=== PATIENT | male | born 1945 | race Caucasian/White ===

== ENCOUNTER 2018-04-26 14:58 | Observation (INO) ==
--- NOTE | 2018-04-26 15:32 | Emergency Department Note ---
ED Disposition Clinical Impression: Partial small bowel obstruction, Hypokalemia Cholelithiasis Qualifiers: Cholelithiasis location: other site Biliary obstruction: without biliary obstruction Qualified Code(s): K80.80 - Other cholelithiasis without obstruction Disposition: Admitted As Inpatient Condition on Discharge: Fair Time of Disposition: 16:32 - Critical Care Critical Care Time: No Attestation: On 04/26/18, the high probability of a clinically significant, sudden or life threatening deterioration of the following system(s) required my full and direct attention, intervention and personal management. The time I documented below is in addition to time spent performing reported procedures but includes the following listed in this critical care notation. Medical Decision Making - Medical Records Medical records reviewed: Yes: I reviewed the patient's medical records. - Flip Inquiry Pt receiving controlled substance: No Vital Signs: 04/26/18 15:00 04/26/18 16:51 04/26/18 17:02 Temperature 98.0 F 99.1 F 98.0 F Temperature Source Oral Oral Oral Pulse Rate 96 H Pulse Rate [Right Brachial] 110 H 84 Respiratory Rate 20 18 20 Blood Pressure 127/52 Blood Pressure [Right Arm] 156/116 146/94 Blood Pressure Mean [Right Arm] 129 111 Blood Pressure Source Automatic Cuff Blood Pressure Source [Right Arm] Automatic Cuff Automatic Cuff Blood Pressure Position Sitting Blood Pressure Position [Right Arm] Sitting Supine 02 Sat by Pulse Oximetry 95 96 Oxygen Delivery Method Room Air Room Air Room Air - Lab Data Lab results reviewed: Yes: I reviewed the patient's lab results. Lab Results 04/26/18 15:25: WBC 12.3 H, RBC 5.28, Hgb 16.5, Hct 45.5, MCV 86.2, MCH 31.3 H, MCHC 36.3 H, RDW 12.2, Plt Count 285, MPV 8.0, Neut % (Auto) 70.6, Lymph % (Auto ) 19.1, [place] % (Auto) 9.6 H, Eos % (Auto) 0.5, Baso % (Auto) 0.3, Neut # (Auto) 8.7 H, Lymph # (Auto) 2.3, [place] # (Auto) 1.2 H, Eos # (Auto) 0.1, Baso # (Auto) 0.0 04/26/18 15:25: Sodium 138, Potassium 2.8 L*, Chloride 100, Carbon Dioxide 28, Anion Gap 12.8, BUN 17, Creatinine 1.04, Estimated Creat Clear 80, Estimated GFR 70, Est GFR ( Amer) 85, Glucose 114 H, Calcium 9.2, Total Bilirubin 1.2 H, AST 22, ALT 26, Alkaline Phosphatase 81, Total Protein 7.9, Albumin 3.7, Globulin 4.2 H, Albumin/Globulin Ratio 0.9 L, Amylase 75, Lipase 493 H Result diagrams: 04/26/18 15:25 04/26/18 15:25 Orders (Tests/Meds): ED MEDICATIONS Generic Name Dose Route Start Last Admin Trade Name Freq PRN Reason Stop Dose Admin Potassium Chloride/Water 100 mls @ 100 mls/hr 04/26/18 16:51 04/26/18 17:54 Potassium Chloride 10meq/100ml Ivpb IV 04/26/18 19:50 100 mls/hr Q1H ILEANA Administration Potassium Chloride/Dextrose/Sod Cl 1,000 mls @ 150 mls/hr 04/26/18 17:15 03/10 17:55 Kcl 40meq In Dex 5%/0.45% Nacl IV 05/26/18 17:14 150 mls/hr .Q6H40M ILEANA Administration Ondansetron HCl 4 mg 04/26/18 17:09 Zofran 4mg/2ml Vial IV 05/26/18 17:08 Q6HP PRN Nausea Sodium Chloride 10 ml 04/26/18 17:43 Saline Flush 10ml Syringe IV 05/26/18 17:42 NEEDED PRN Maintain IV Site Discontinued Medications Generic Name Dose Route Start Last Admin Trade Name Freq PRN Reason Stop Dose Admin Sodium Chloride 1,000 mls @ 999 mls/hr 04/26/18 15:30 04/26/18 15:40 Sod Chlor 0.9% 1000ml Bag IV 04/26/18 16:30 999 mls/hr .Q1H1M ILEANA Administration Sodium Chloride 1,000 mls @ 125 mls/hr 04/26/18 16:45 Sod Chlor 0.9% 1000ml Bag IV 05/26/18 16:44 .Q8H ILEANA Morphine Sulfate 4 mg 04/26/18 16:34 Morphine 2mg/Ml Syringe IV 05/26/18 16:33 Q4HP PRN Pain Ondansetron HCl 4 mg 04/26/18 15:29 04/26/18 15:39 Zofran 4mg/2ml Vial IV 04/26/18 15:30 4 mg ONCE ONE Administration Ondansetron HCl 4 mg 04/26/18 16:34 Zofran 4mg/2ml Vial IV 05/26/18 16:44 Q4H PRN Nausea Pantoprazole Sodium 40 mg 04/26/18 16:45 Protonix 40mg Tablet PO 05/26/18 16:44 DAILY ILEANA ORDERS Category Date Time Status Consult to General Surgery [CONS] Routine Cons 04/26/18 16:34 Ordered - CT Data CT Scan: Abdomen, Pelvis Time Received: 16:[address] Reviewed: Yes: I have reviewed the patient's CT results, I discussed the CT results w/the radiologist Findings Narrative: [address] [place] [address] [place] Scan Report Signed Patient: Edmund Cunningham MR#: [id number] : 1945 Acct:[id number] Age/Sex: 72 / M ADM Date: 04/26/18 Loc: ER Attending Dr: Ordering Physician: David De Leon MD Date of Service: 04/26/18 Procedure(s): CT abdomen pelvis wo con Accession Number(s): [id number] cc: Chan Bishop MD; Provider, Referral MD~ CT abdomen pelvis wo con CLINICAL INDICATION: Abdominal cramping with diarrhea and black stool ITS.REASON: abd cramping, diarrhea, black stools ORDERING PHYSICIAN: David De Leon MD PATIENT AGE: 72 years COMPARISON: None TECHNIQUE: Axial images obtained with sagittal and coronal reformats. All CT scans at the facility use one or more dose reduction, viz: automated exposure control; ma/kV adjustment per patient size (including targeted exams where dose is matched to indication; i.e. head); or iterative reconstruction technique. PROCEDURE: Oral Contrast: None IV Contrast: None . FINDINGS: The lung bases are clear. Coronary artery calcifications are present. Mosaic decreased density is present involving the liver consistent with fatty liver infiltration. Small hyperdense areas noted in the left hepatic lobe anterior to the gallbladder measuring 8 mm and may be due to focal sparing of fatty liver. There are gallstones present. At least one stone is present in the neck of the gallbladder measuring 6 mm. No obvious biliary dilatation. The spleen and adrenal glands are unremarkable. The pancreas has an unremarkable appearance. There are multiple bilateral renal cysts measuring up to 11 cm in the lower pole on the right. A bilocular cyst measures up to 10 cm on the left laterally. Nonobstructing 3 mm stone is present in the lower pole the left kidney. No ureteral calculi. No hydronephrosis. No evidence of appendicitis. The appendix is small but hyperdense could be related to retained contrast. There is diverticulosis of the colon but no evidence of diverticulitis. There are mildly distended small bowel loops noted in the mid abdominal region containing air-fluid levels. This is nonspecific and could be related to ileus or enteritis. No acute bony anomalies. IMPRESSION: 1. Cholelithiasis with a stone present in the neck of the gallbladder. 2. Bilateral renal cysts with nonobstructing stone in the lower pole of the left kidney. 3. Mildly distended small bowel in the mid abdominal region with air-fluid levels. There are some air-fluid levels also noted large bowel. The findings may be due to ileus or enterocolitis. Dictated By: Chan Bishop MD Signed By: <Electronically signed by Chan Bishop MD in OV> 04/26/18 1558 DD/ 1545 - Physician Consults Physician Consulted: Dr Zelaya Time: 16:45 Reason -: Admission, Pt condition Comment/Response: Advised of patient's presentation and findings, agreeable with hospitalization, as well as consult to general surgeon. - Reevaluation(s) Time: 16:30 Reevaluation #1: Upon reevaluation patient remains in distress, without any significant improvement. Advised patient of results obtained, as well as need to place him in the observation for additional treatment and studies. Abdominal Pain HPI - General Chief Complaint: Abdominal Pain Stated Complaint: abd pain, vomiting, black stool Time Seen by Provider: 04/26/18 15:40 Mode of Arrival: Ambulatory Source of Information: Patient Limitations: No Limitations Description of Symptoms (Recalled from ER Triage Doc. by RN): Pt reports abd cramping x3 weeks, reports stomach feels bloated, reports diarrhea x1 week with black stools. Pt states he has not eaten in 1 week, reports he has lost 16 pounds. - History of Present Illness HPI narrative: Patient symptoms started approximately 3 weeks ago, gradually escalating, culminating with severe abdominal pain, localized in the epigastric area, since earlier this morning. Within the past 3 weeks the patient's pain causes him to decrease his oral intake, lose 16 pounds. She was unable to eat anything since morning, due to his severe pain, also associated with few episodes of nausea vomiting. Patient denies any similar episodes in the past. MD complaint: abdominal pain Onset (ago): week(s) (3) Consistency: constant Location: suprapubic Severity: moderate Severity scale (1-10): 8 Quality: cramping, stabbing Radiation: none Migration to: no migration Exacerbating factors: nothing - Related Data Home Medications Medication Instructions Recorded Confirmed No Known Home Medications 04/26/18 04/26/18 Allergies Allergy/AdvReac Type Severity Reaction Status Date / Time No Known Allergies Allergy Verified 04/26/18 15:26 [facility] History I have reviewed the patient's past medical history: Yes ROS Obtained: Yes All systems reviewed & no additional complaints, Yes Systems reviewed as appropriate & no additional complaints - Gastrointestinal Gastrointestingal: Reports: system reviewed and no additional complaints, except as docu, as per HPI, abdominal pain, bloating, nausea, vomiting Physical Exam - General General appearance: alert, in distress (moderate) - Head Head exam: atraumatic, normocephalic, normal inspection - Neck Neck exam: Present: normal inspection, full ROM, trachea midline. Absent: meningismus, lymphadenopathy - Chest Chest inspection: Present: normal inspection, symmetric chest wall rise. Absent : tenderness - Respiratory Respiratory exam: Present: normal lung sounds bilaterally. Absent: respiratory distress - Cardiovascular Cardiovascular exam: Present: tachycardia. Absent: JVD - Abdominal Exam Abdominal exam: Present: soft, tenderness (Epigastric), normal bowel sounds. Absent: distention, guarding - Extremities Exam Extremities exam: Present: normal inspection, full ROM, normal capillary refill. Absent: calf tenderness - Neurological Exam Neurological exam: Present: alert, oriented X3, CN II-XII intact, normal gait - Psychiatric Psychiatric exam: Present: depressed, flat affect - Skin Skin exam: Present: warm, dry, intact, normal color
[2018-04-26 15:39] LABS: Hematocrit 45.5 % (42.0-52.0); Hemoglobin 16.5 g/dL (14.1-18.0); Mean Corpuscular HGB Conc 36.3 g/dL (31.8-35.4); Mean Corpuscular Hemoglobin 31.3 pg (27.0-31.2); Mean Corpuscular Volume 86.2 fl (80-94); Red Blood Count 5.28 M/mm3 (4.60-6.20); Red Cell Distribution Width 12.2 % (11.5-17.5); White Blood Count 12.3 K/mm3 (4.8-10.8)
[2018-04-26 15:40] LABS: Basophils % 0.3 % (0.1-2.0); Eosinophils % 0.5 % (0.1-12.0); Lymphocytes # 2.3 K/mm3 (0.7-4.5); Lymphocytes % 19.1 K/mm3 (10-50); Monocytes % 9.6 % (1.7-9.3); Neutrophils # 8.7 K/mm3 (1.8-7.8); Neutrophils % 70.6 % (37.0-80.0); Platelet Count 285 K/mm3 (142-424)
[2018-04-26 15:41] LABS: Eosinophils # 0.1 K/mm3 (0.0-0.4); Monocytes # 1.2 K/mm3 (0.1-1.0)
[2018-04-26 15:47] LABS: Albumin Level 3.7 gm/dL (3.4-5.0); Albumin/Globulin Ratio 0.9 (1.1-1.8); Anion Gap 12.8 mEq/L (5-15); Bilirubin,Total 1.2 mg/dL (0.2-1.0); Calcium 9.2 mg/dL (8.5-10.1); Globulin 4.2 gm/dl (1.3-3.2); Total Protein,Serum 7.9 gm/dL (6.4-8.2)
[2018-04-26 15:48] LABS: Potassium 2.8 mmoL/L (3.5-5.1)
--- NOTE | 2018-04-26 17:01 | History & Physical Report ---
*Admission Date: 04/26/18 *Chief complaint: Abdominal pain *History of present illness: 72-year-old male presented to the emergency department today with approximately 3 weeks of abdominal pain. While symptoms began 3 weeks ago they did not really intensify until April 18. Patient reports on that day, which was a Thursday , he experienced abdominal pain and a sensation as if food was coming up into his throat while he was at [employer]. He left [employer] to come home. From that point on he has had intermittent episodes of severe abdominal pain. 48 hours later on April 20 was the last time he attempted to eat. Whenever he would eat he would get crampy abdominal pain and occasionally been nauseated with emesis. He endorses subjective fevers and chills. He has been on a liquid diet for the last week. When this illness began 3 weeks ago he noticed black stools that have persisted. Patient does not take any medications. He notices recurrent abdominal distention anytime he tries to eat or drink. He reports a 16 pound weight loss. He is to the point where he is having 1-2 bowel movements per day that are described as "squirt" or a "spray". Workup in the emergency department revealed gaseous distention of the stomach along with cholelithiasis at the neck of the gallbladder, and findings suggestive of ileus. Patient has been admitted for gastrointestinal decompression, surgical consultation [facility] History I have reviewed the patient's past medical history: Yes Review of Systems - Review of Systems Review of systems:: pertinent systems reviewed and negative unless documented below - Constitutional Reports anorexia, Reports chills - *Cardiovascular Denies chest pain, Denies chest pain at rest - *Respiratory Denies change in phlegm color, Denies cough, Denies shortness of breath - *Gastrointestinal Reports abdominal pain, Reports bloating, Reports change in bowel habits, Reports change in stools, Reports black, tarry stools, Denies difficulty swallowing, Denies vomiting blood, Denies bright, red blood in stools Meds Home Medications Medication Instructions Recorded Confirmed Type No Known Home Medications 04/26/18 04/26/18 History Allergies Allergy/AdvReac Type Severity Reaction Status Date / Time No Known Allergies Allergy Verified 04/26/18 15:26 Exam Vital signs and Labs for Last 24 Hours: Temp Pulse Resp BP Pulse Ox 98.0 F 110 H 20 156/116 95 04/26/18 15:00 06/04/18 15:00 04/26/18 15:00 04/26/18 15:00 04/26/18 15:00 Laboratory Results - last 24 hr 04/26/18 15:25: WBC 12.3 H, RBC 5.28, Hgb 16.5, Hct 45.5, MCV 86.2, MCH 31.3 H, MCHC 36.3 H, RDW 12.2, Plt Count 285, MPV 8.0, Neut % (Auto) 70.6, Lymph % (Auto ) 19.1, [place] % (Auto) 9.6 H, Eos % (Auto) 0.5, Baso % (Auto) 0.3, Neut # (Auto) 8.7 H, Lymph # (Auto) 2.3, [place] # (Auto) 1.2 H, Eos # (Auto) 0.1, Baso # (Auto) 0.0 04/26/18 15:25: Sodium 138, Potassium 2.8 L*, Chloride 100, Carbon Dioxide 28, Anion Gap 12.8, BUN 17, Creatinine 1.04, Estimated Creat Clear 80, Estimated GFR 70, Est GFR ( Amer) 85, Glucose 114 H, Calcium 9.2, Total Bilirubin 1.2 H, AST 22, ALT 26, Alkaline Phosphatase 81, Total Protein 7.9, Albumin 3.7, Globulin 4.2 H, Albumin/Globulin Ratio 0.9 L, Amylase 75, Lipase 493 H I & O for Last 24 hours: Intake & Output 04/24/18 04/25/18 04/26/18 04/27/18 11:59 11:59 11:59 11:59 Weight 196 lb Narrative: Patient appears well. HEENT exam is unremarkable, mucous membranes are moist. Neck is without carotid bruits or lymphadenopathy. Lungs are clear to auscultation. Heart has a regular rate and rhythm. Abdomen is soft, nontender , distended. I do not hear bowel sounds during exam. Extremities are warm to the touch. Neurologically there is no deficit and the patient actually transitions from lying to sitting quite easily. H&P: Result - Labs Labs: Short CBC 04/26/18 Range/Units 15:25 WBC 12.3 H (4.8-10.8) K/mm3 Hgb 16.5 (14.1-18.0) g/dL Hct 45.5 (42.0-52.0) % Plt Count 285 (142-424) K/mm3 BMP 04/26/18 15:25 Sodium 138 Potassium 2.8 L* Chloride 100 Carbon Dioxide 28 BUN 17 Creatinine 1.04 Glucose 114 H Calcium 9.2 Liver Function 04/26/18 Range/Units 15:25 Total Bilirubin 1.2 H (0.2-1.0) mg/dL AST 22 (15-37) U/L ALT 26 (12-78) U/L Alkaline Phosphatase 81 (46-116) U/L Albumin 3.7 (3.4-5.0) gm/dL Assessment and Plan (1) Partial small bowel obstruction Current visit: Yes Status: Acute Category: Medical Code(s): K56.600 - Partial intestinal obstruction, unspecified as to cause (2) Elevated lipase Current visit: Yes Status: Acute Category: Medical Code(s): R74.8 - Abnormal levels of other serum enzymes (3) Cholelithiasis Current visit: Yes Status: Acute Qualifiers: Cholelithiasis location: other site Biliary obstruction: without biliary obstruction Qualified Code(s): K80.80 - Other cholelithiasis without obstruction Category: Medical Code(s): K80.20 - Calculus of gallbladder without cholecystitis without obstruction (4) Hypokalemia Current visit: Yes Status: Acute Category: Medical Code(s): E87.6 - Hypokalemia - Assessment and plan all Dx Assessment and Plan for all problems:: 1. Admit for IV fluids and potassium replacement 2. Repeat labs in morning including lipase 3. Surgical consultation. Origin of patient's gastrointestinal problems is somewhat a mystery. He has visible cholelithiasis on CT scan. He could have possibly had a gallstone ileus or even gallstone pancreatitis as lipase remains slightly elevated. Tarry stools would suggest upper GI bleed. NG tube will be placed in the emergency department for gastric decompression.
--- NOTE | 2018-04-26 19:21 | Consult Report ---
*Admission Date: 04/26/18 *Chief complaint: Abdominal pain *History of present illness: 72-year-old male presented to the emergency department today with approximately 3 weeks of abdominal pain. While symptoms began 3 weeks ago they did not really intensify until April 18. Patient reports on that day, which was a Thursday , he experienced abdominal pain and a sensation as if food was coming up into his throat while he was at [employer]. He left [employer] to come home. From that point on he has had intermittent episodes of severe abdominal pain. 48 hours later on April 20 was the last time he attempted to eat. Whenever he would eat he would get crampy abdominal pain and occasionally been nauseated with emesis. He endorses subjective fevers and chills. He has been on a liquid diet for the last week. When this illness began 3 weeks ago he noticed black stools that have persisted. Patient does not take any medications. He notices recurrent abdominal distention anytime he tries to eat or drink. He reports a 16 pound weight loss. He is to the point where he is having 1-2 bowel movements per day that are described as "squirt" or a "spray". Workup in the emergency department revealed gaseous distention of the stomach along with cholelithiasis at the neck of the gallbladder, and findings suggestive of ileus. Patient has been admitted for gastrointestinal decompression, surgical consultation He describes the pain as generalized in the mid abdomen resembling a weight. He does describe distention. He has had regurgitation of liquid and has had black liquid bowel movements. He has never had any prior abdominal surgery. Denies any prior similar history. Review of Systems - Constitutional Reports chills, Reports fatigue, Reports lack of energy - Eyes Denies change in vision - ENT Denies abnormal hearing - *Cardiovascular Denies chest pain - *Respiratory Denies shortness of breath - *Gastrointestinal Reports abdominal pain, Reports belching, Reports bloating, Reports change in bowel habits, Reports change in stools - *Musculoskeletal Denies abnormal walking - *Neurologic Denies dizziness [facility] History Medical History: Denies:: Cancer, Diabetes Mellitus Type 1, Diabetes Mellitus Type 2, MRSA Amputation: No Fractures: No - *Social History Educational Level: Attended College Alcohol Intake: never Occupational Status: retired Housing: house Household Members: spouse - Psychiatric History Expresses thoughts of harming self/others: None Suicide Plan Description: No Plan *Family Hx:: Hypertension Meds Home Medications Medication Instructions Recorded Confirmed Type No Known Home Medications 04/26/18 04/26/18 History Allergies Allergy/AdvReac Type Severity Reaction Status Date / Time No Known Allergies Allergy Verified 04/26/18 15:26 Exam Vital signs and Labs for Last 24 Hours: Temp Pulse Resp BP Pulse Ox 98.0 F 96 H 20 127/52 99 04/26/18 17:02 04/26/18 17:02 04/26/18 17:02 04/26/18 17:02 04/26/18 18:30 Laboratory Results - last 24 hr 04/26/18 15:25: WBC 12.3 H, RBC 5.28, Hgb 16.5, Hct 45.5, MCV 86.2, MCH 31.3 H, MCHC 36.3 H, RDW 12.2, Plt Count 285, MPV 8.0, Neut % (Auto) 70.6, Lymph % (Auto ) 19.1, [place] % (Auto) 9.6 H, Eos % (Auto) 0.5, Baso % (Auto) 0.3, Neut # (Auto) 8.7 H, Lymph # (Auto) 2.3, [place] # (Auto) 1.2 H, Eos # (Auto) 0.1, Baso # (Auto) 0.0 04/26/18 15:25: Sodium 138, Potassium 2.8 L*, Chloride 100, Carbon Dioxide 28, Anion Gap 12.8, BUN 17, Creatinine 1.04, Estimated Creat Clear 80, Estimated GFR 70, Est GFR ( Amer) 85, Glucose 114 H, Calcium 9.2, Total Bilirubin 1.2 H, AST 22, ALT 26, Alkaline Phosphatase 81, Total Protein 7.9, Albumin 3.7, Globulin 4.2 H, Albumin/Globulin Ratio 0.9 L, Amylase 75, Lipase 493 H I & O for Last 24 hours: Intake & Output 04/24/18 04/25/18 04/26/18 04/27/18 11:59 11:59 11:59 11:59 Intake Total 100 / 100 Balance 100 / 100 Weight 205 lb 1.995 oz - Constitutional no acute distress - *Routine Cardiovascular Exam Present: RRR - *Routine Abdominal Exam Present: distended. Absent: tenderness Results - Labs 04/26/18 15:25 04/26/18 15:25 Laboratory Results - last 24 hr 04/26/18 15:25: WBC 12.3 H, RBC 5.28, Hgb 16.5, Hct 45.5, MCV 86.2, MCH 31.3 H, MCHC 36.3 H, RDW 12.2, Plt Count 285, MPV 8.0, Neut % (Auto) 70.6, Lymph % (Auto ) 19.1, [place] % (Auto) 9.6 H, Eos % (Auto) 0.5, Baso % (Auto) 0.3, Neut # (Auto) 8.7 H, Lymph # (Auto) 2.3, [place] # (Auto) 1.2 H, Eos # (Auto) 0.1, Baso # (Auto) 0.0 04/26/18 15:25: Sodium 138, Potassium 2.8 L*, Chloride 100, Carbon Dioxide 28, Anion Gap 12.8, BUN 17, Creatinine 1.04, Estimated Creat Clear 80, Estimated GFR 70, Est GFR ( Amer) 85, Glucose 114 H, Calcium 9.2, Total Bilirubin 1.2 H, AST 22, ALT 26, Alkaline Phosphatase 81, Total Protein 7.9, Albumin 3.7, Globulin 4.2 H, Albumin/Globulin Ratio 0.9 L, Amylase 75, Lipase 493 H Assessment and Plan (1) Partial small bowel obstruction Current visit: Yes Status: Acute Category: Medical Code(s): K56.600 - Partial intestinal obstruction, unspecified as to cause (2) Elevated lipase Current visit: Yes Status: Acute Category: Medical Code(s): R74.8 - Abnormal levels of other serum enzymes (3) Cholelithiasis Current visit: Yes Status: Acute Qualifiers: Cholelithiasis location: other site Biliary obstruction: without biliary obstruction Qualified Code(s): K80.80 - Other cholelithiasis without obstruction Category: Medical Code(s): K80.20 - Calculus of gallbladder without cholecystitis without obstruction (4) Hypokalemia Current visit: Yes Status: Acute Category: Medical Code(s): E87.6 - Hypokalemia - Assessment and plan all Dx Assessment and Plan for all problems:: Patient's constellation of symptoms are quite in enigma. He does seem to have some symptoms consistent with partial small bowel obstruction. I did review the films and although he had a CT scan without any contrast whatsoever he appears to only have mild to moderate distention of the bowel with air-fluid levels. He does have quite large bilateral renal cysts. I do agree with gallbladder ultrasound for better assessment of the gallbladder although the symptoms seem quite atypical for primary cholecystitis. It is possible he has had biliary pancreatitis with secondary ileus which is now slowly resolving. If his symptoms persist and the diagnosis remains in question and he is able to tolerate oral intake CT scan with IV and oral contrast would likely be very beneficial.
[2018-04-27 05:54] LABS: Basophils % 0.5 % (0.1-2.0); Eosinophils # 0.1 K/mm3 (0.0-0.4); Eosinophils % 1.7 % (0.1-12.0); Hematocrit 43.1 % (42.0-52.0); Lymphocytes # 1.7 K/mm3 (0.7-4.5); Lymphocytes % 23.6 K/mm3 (10-50); Mean Corpuscular HGB Conc 33.2 g/dL (31.8-35.4); Mean Corpuscular Volume 90.2 fl (80-94); Monocytes # 0.8 K/mm3 (0.1-1.0); Neutrophils # 4.6 K/mm3 (1.8-7.8); Neutrophils % 63.3 % (37.0-80.0); Platelet Count 229 K/mm3 (142-424); Red Blood Count 4.77 M/mm3 (4.60-6.20); Red Cell Distribution Width 12.4 % (11.5-17.5); White Blood Count 7.3 K/mm3 (4.8-10.8)
[2018-04-27 06:02] LABS: Hemoglobin 14.5 g/dL (14.1-18.0)
[2018-04-27 06:09] LABS: Albumin Level 2.8 gm/dL (3.4-5.0); Anion Gap 10.4 mEq/L (5-15); Bilirubin,Direct 0.2 mg/dL (0.0-0.2); Bilirubin,Indirect 0.5 mg/dL (0.0-0.9); Bilirubin,Total 0.7 mg/dL (0.2-1.0); Potassium 3.4 mmoL/L (3.5-5.1); Total Protein,Serum 6.2 gm/dL (6.4-8.2)
[2018-04-27 06:19] LABS: Calcium 8.1 mg/dL (8.5-10.1)
--- NOTE | 2018-04-27 06:53 | Progress Note ---
Internal Medicine - PN: Subj *Date: 04/27/18 *Time: 06:51 Interval history: Patient has no new complaints this morning. He states he feels about the same. Abdomen remains distended and he has had several bowel movements overnight which were loose and a mixture of yellow and black stool. He is also had some acid reflux overnight but denies outright vomiting. Exam Vital signs and Labs for Last 24 Hours: Temp Pulse Resp BP Pulse Ox 98.2 F 63 22 134/88 95 04/27/18 04:00 04/27/18 04:00 04/27/18 04:00 04/27/18 04:00 04/27/18 04:00 Laboratory Results - last 24 hr 04/26/18 15:25: WBC 12.3 H, RBC 5.28, Hgb 16.5, Hct 45.5, MCV 86.2, MCH 31.3 H, MCHC 36.3 H, RDW 12.2, Plt Count 285, MPV 8.0, Neut % (Auto) 70.6, Lymph % (Auto ) 19.1, [place] % (Auto) 9.6 H, Eos % (Auto) 0.5, Baso % (Auto) 0.3, Neut # (Auto) 8.7 H, Lymph # (Auto) 2.3, [place] # (Auto) 1.2 H, Eos # (Auto) 0.1, Baso # (Auto) 0.0 04/26/18 15:25: Sodium 138, Potassium 2.8 L*, Chloride 100, Carbon Dioxide 28, Anion Gap 12.8, BUN 17, Creatinine 1.04, Estimated Creat Clear 80, Estimated GFR 70, Est GFR ( Amer) 85, Glucose 114 H, Calcium 9.2, Total Bilirubin 1.2 H, AST 22, ALT 26, Alkaline Phosphatase 81, Total Protein 7.9, Albumin 3.7, Globulin 4.2 H, Albumin/Globulin Ratio 0.9 L, Amylase 75, Lipase 493 H 04/26/18 21:00: Stool Occult Blood Negative 04/27/18 05:30: WBC 7.3 D, RBC 4.77, Hgb 14.5 D, Hct 43.1, MCV 90.2, MCH 30.0 , MCHC 33.2, RDW 12.4, Plt Count 229, MPV 8.0, Neut % (Auto) 63.3, Lymph % (Auto ) 23.6, [place] % (Auto) 11.0 H, Eos % (Auto) 1.7, Baso % (Auto) 0.5, Neut # (Auto ) 4.6, Lymph # (Auto) 1.7, [place] # (Auto) 0.8, Eos # (Auto) 0.1, Baso # (Auto) 0.0 04/27/18 05:30: Sodium 139, Potassium 3.4 L D, Chloride 104, Carbon Dioxide 28, Anion Gap 10.4, BUN 13, Creatinine 0.73 D, Estimated Creat Clear 87, Estimated GFR 105, Est GFR ( Amer) 127 D, Glucose 119 H, Calcium 8.1 L D, Total Bilirubin 0.7, Direct Bilirubin 0.2, Indirect Bilirubin 0.5, AST 21, ALT 21, Alkaline Phosphatase 63, Total Protein 6.2 L, Albumin 2.8 L D, Amylase 66 D, Lipase 466 H I & O for Last 24 hours: Intake & Output 04/24/18 04/25/18 04/26/18 04/27/18 11:59 11:59 11:59 11:59 Intake Total 200 / 200 Balance 200 / 200 Weight 205 lb 1.995 oz Narrative: He is in no distress. Lungs are clear. Heart has a regular rate and rhythm. Abdomen is soft with right lower quadrant tenderness this morning, mild abdominal distention with increased tympany, active bowel sounds. Assessment and Plan (1) Partial small bowel obstruction Current visit: Yes Status: Acute Category: Medical Code(s): K56.600 - Partial intestinal obstruction, unspecified as to cause (2) Elevated lipase Current visit: Yes Status: Acute Category: Medical Code(s): R74.8 - Abnormal levels of other serum enzymes (3) Cholelithiasis Current visit: Yes Status: Acute Qualifiers: Cholelithiasis location: other site Biliary obstruction: without biliary obstruction Qualified Code(s): K80.80 - Other cholelithiasis without obstruction Category: Medical Code(s): K80.20 - Calculus of gallbladder without cholecystitis without obstruction (4) Hypokalemia Current visit: Yes Status: Acute Category: Medical Code(s): E87.6 - Hypokalemia - Assessment and plan all Dx Assessment and Plan for all problems:: Repeat CT scan of abdomen and pelvis this time with oral and IV contrast.
--- NOTE | 2018-04-27 07:26 | Progress Note ---
Subjective Patient reports: no new complaints Narrative: Patient complains of "heartburn". This sounds like it is consistent with regurgitation of some liquid. He has had liquid bowel movements. Exam Vital signs and Labs for Last 24 Hours: Temp Pulse Resp BP Pulse Ox 98.2 F 63 22 134/88 95 04/27/18 04:00 04/27/18 04:00 04/27/18 04:00 04/27/18 04:00 04/27/18 04:00 Laboratory Results - last 24 hr 04/26/18 15:25: WBC 12.3 H, RBC 5.28, Hgb 16.5, Hct 45.5, MCV 86.2, MCH 31.3 H, MCHC 36.3 H, RDW 12.2, Plt Count 285, MPV 8.0, Neut % (Auto) 70.6, Lymph % (Auto ) 19.1, [place] % (Auto) 9.6 H, Eos % (Auto) 0.5, Baso % (Auto) 0.3, Neut # (Auto) 8.7 H, Lymph # (Auto) 2.3, [place] # (Auto) 1.2 H, Eos # (Auto) 0.1, Baso # (Auto) 0.0 04/26/18 15:25: Sodium 138, Potassium 2.8 L*, Chloride 100, Carbon Dioxide 28, Anion Gap 12.8, BUN 17, Creatinine 1.04, Estimated Creat Clear 80, Estimated GFR 70, Est GFR ( Amer) 85, Glucose 114 H, Calcium 9.2, Total Bilirubin 1.2 H, AST 22, ALT 26, Alkaline Phosphatase 81, Total Protein 7.9, Albumin 3.7, Globulin 4.2 H, Albumin/Globulin Ratio 0.9 L, Amylase 75, Lipase 493 H 04/26/18 21:00: Stool Occult Blood Negative 04/27/18 05:30: WBC 7.3 D, RBC 4.77, Hgb 14.5 D, Hct 43.1, MCV 90.2, MCH 30.0 , MCHC 33.2, RDW 12.4, Plt Count 229, MPV 8.0, Neut % (Auto) 63.3, Lymph % (Auto ) 23.6, [place] % (Auto) 11.0 H, Eos % (Auto) 1.7, Baso % (Auto) 0.5, Neut # (Auto ) 4.6, Lymph # (Auto) 1.7, [place] # (Auto) 0.8, Eos # (Auto) 0.1, Baso # (Auto) 0.0 04/27/18 05:30: Sodium 139, Potassium 3.4 L D, Chloride 104, Carbon Dioxide 28, Anion Gap 10.4, BUN 13, Creatinine 0.73 D, Estimated Creat Clear 87, Estimated GFR 105, Est GFR ( Amer) 127 D, Glucose 119 H, Calcium 8.1 L D, Total Bilirubin 0.7, Direct Bilirubin 0.2, Indirect Bilirubin 0.5, AST 21, ALT 21, Alkaline Phosphatase 63, Total Protein 6.2 L, Albumin 2.8 L D, Amylase 66 D, Lipase 466 H I & O for Last 24 hours: Intake & Output 04/24/18 04/25/18 04/26/18 04/27/18 11:59 11:59 11:59 11:59 Intake Total 200 / 200 Balance 200 / 200 Weight 205 lb 1.995 oz - *Routine Abdominal Exam Present: soft, distended Progress Note: A&P (1) Partial small bowel obstruction Status: Acute Current Visit: Yes (2) Elevated lipase Status: Acute Current Visit: Yes (3) Cholelithiasis Status: Acute Current Visit: Yes (4) Hypokalemia Status: Acute Current Visit: Yes Assessment and Plan for All Diagnoses:: Exact etiology of his symptoms is still somewhat unclear. Possibility of biliary and pancreatic etiology with secondary ileus seems less likely but possible. Partial small bowel obstruction secondary to neoplasm is also a strong consideration. Plan for CT scan with IV and oral contrast today if the patient is able to tolerate oral contrast.
--- NOTE | 2018-04-27 07:37 | Pharmacy Consult Notes ---
[facility] Pharmacy VTE Monitoring - Patient Demographics Admission date: 04/27/18 Report Date: 04/27/18 Time: 07:37 Allergies/Adverse Reactions: Patient Allergies No Known Allergies Allergy (Verified 04/26/18 15:26) Height: 1.78 m Weight: 93.043 kg Patient Problems: Current Active Problems Partial small bowel obstruction (Acute) Cholelithiasis (Acute) Hypokalemia (Acute) Elevated lipase (Acute) - VTE Risk Labs: VTE Related Lab Results Hgb 14.5 g/dL (14.1-18.0) D 04/27/18 05:30 Hct 43.1 % (42.0-52.0) 04/27/18 05:30 Plt Count 229 K/mm3 (142-424) 04/27/18 05:30 BUN 13 mg/dL (7-18) 04/27/18 05:30 Creatinine 0.73 mg/dL (0.70-1.30) D 04/27/18 05:30 Estimated Creat Clear 87 mL/min (0-300) 04/27/18 05:30 Was VTE Risk Assessment Performed: Yes VTE Score: 1 VTE Risk Level: Low Risk Clinical Trial Participant: No - Prophylaxis VTE Prophylaxis Ordered?: Yes Types of VTE Prophylaxis: TEDS Knee High Location of Applied Device: Not Applicable
[2018-04-28 06:04] LABS: Basophils % 0.6 % (0.1-2.0); Eosinophils # 0.2 K/mm3 (0.0-0.4); Eosinophils % 2.9 % (0.1-12.0); Hematocrit 42.8 % (42.0-52.0); Lymphocytes # 1.5 K/mm3 (0.7-4.5); Lymphocytes % 22.7 K/mm3 (10-50); Mean Corpuscular HGB Conc 32.8 g/dL (31.8-35.4); Mean Corpuscular Hemoglobin 30.1 pg (27.0-31.2); Mean Corpuscular Volume 91.7 fl (80-94); Mean Platelet Volume 7.7 fl (7.4-10.4); Monocytes # 0.8 K/mm3 (0.1-1.0); Monocytes % 11.3 % (1.7-9.3); Neutrophils # 4.2 K/mm3 (1.8-7.8); Neutrophils % 62.5 % (37.0-80.0); Platelet Count 250 K/mm3 (142-424); Red Blood Count 4.67 M/mm3 (4.60-6.20); Red Cell Distribution Width 12.5 % (11.5-17.5); White Blood Count 6.7 K/mm3 (4.8-10.8)
[2018-04-28 06:28] LABS: Albumin Level 2.8 gm/dL (3.4-5.0); Anion Gap 10.5 mEq/L (5-15); Bilirubin,Direct 0.1 mg/dL (0.0-0.2); Bilirubin,Indirect 0.5 mg/dL (0.0-0.9); Bilirubin,Total 0.6 mg/dL (0.2-1.0); Calcium 8.3 mg/dL (8.5-10.1); Potassium 3.5 mmoL/L (3.5-5.1); Total Protein,Serum 6.1 gm/dL (6.4-8.2)
--- NOTE | 2018-04-28 07:15 | Progress Note ---
Internal Medicine - PN: Subj *Date: 04/28/18 *Time: 07:12 Interval history: Patient has no new complaints this morning. IV Protonix seemed to help his heartburn significantly. He denies any abdominal cramping after starting Reglan. He did have some "shotgun blast" bowel movements overnight. Diarrhea panel has returned positive for normal virus Exam Vital signs and Labs for Last 24 Hours: Temp Pulse Resp BP Pulse Ox 97.8 F 66 18 133/82 94 L 04/28/18 04:00 04/28/18 04:00 04/28/18 04:00 04/28/18 04:00 04/28/18 04:00 Laboratory Results - last 24 hr 04/26/18 20:11: Stool Occult Blood Negative 04/27/18 20:00: Stl Aeromonas (PCR) Not detected, Stl C. cayetanensis PCR Not detected, Stool Rotavirus (PCR) Not detected, Stl Adenov F 40/41 PCR Not detected, Stool Astrovirus (PCR) Not detected, Stool Campylobacter PCR Not detected, Stl C.difficile Tox PCR Not detected, Stool Cryptosporidium PCR Not detected, Stl E.coli Shiga Tox PCR Not detected, Stool E coli O157 PCR Not detected, Stl Enterotoxigenic E PCR Not detected, Stool EPEC (PCR) Not detected , Stool EAEC (PCR) Not detected, Stl E. histolytica PCR Not detected, Stool Giardia Lamblia PCR Not detected, Stool Salmonella PCR Not detected, Stool Sapovirus (PCR) Not detected, Stl P. shigelloides PCR Not detected, Stl Shigella /EIEC PCR Not detected, St Y.enterocolitica PCR Not detected, Stool Vibrio (PCR ) Not detected, Stl Vibrio cholerae PCR Not detected, Stl Norovirus GI/GII PCR Detected A 04/28/18 05:20: WBC 6.7, RBC 4.67, Hgb 14.0 L, Hct 42.8, MCV 91.7, MCH 30.1, MCHC 32.8, RDW 12.5, Plt Count 250, MPV 7.7, Neut % (Auto) 62.5, Lymph % (Auto) 22.7, [place] % (Auto) 11.3 H, Eos % (Auto) 2.9, Baso % (Auto) 0.6, Neut # (Auto) 4.2, Lymph # (Auto) 1.5, [place] # (Auto) 0.8, Eos # (Auto) 0.2, Baso # (Auto) 0.0 04/28/18 05:20: Sodium 139, Potassium 3.5, Chloride 106, Carbon Dioxide 26, Anion Gap 10.5, BUN 7 D, Creatinine 0.75, Estimated Creat Clear 87, Estimated GFR 102, Est GFR ( Amer) 124, Glucose 111 H, Calcium 8.3 L, Total Bilirubin 0.6, Direct Bilirubin 0.1, Indirect Bilirubin 0.5, AST 17, ALT 23, Alkaline Phosphatase 64, Total Protein 6.1 L, Albumin 2.8 L I & O for Last 24 hours: Intake & Output 04/25/18 04/26/18 04/27/18 04/28/18 11:59 11:59 11:59 11:59 Intake Total 200 / 200 4728 / 4728 Output Total 600 / 600 Balance 200 / 200 4128 / 4128 Weight 205 lb 2 oz Narrative: He awakens easily this morning. Abdomen is soft with minimal right lower quadrant tenderness. Bowel sounds are active. Assessment and Plan (1) Infection due to Norovirus species Current visit: Yes Status: Acute Category: Medical Code(s): A08.11 - Acute gastroenteropathy due to [place] agent (2) Ileus Current visit: Yes Status: Acute Category: Medical Code(s): K56.7 - Ileus , unspecified (3) Cholelithiasis Current visit: Yes Status: Acute Qualifiers: Cholelithiasis location: other site Biliary obstruction: without biliary obstruction Qualified Code(s): K80.80 - Other cholelithiasis without obstruction Category: Medical Code(s): K80.20 - Calculus of gallbladder without cholecystitis without obstruction (4) Elevated lipase Current visit: Yes Status: Acute Category: Medical Code(s): R74.8 - Abnormal levels of other serum enzymes (5) Hypokalemia Current visit: Yes Status: Acute Category: Medical Code(s): E87.6 - Hypokalemia - Assessment and plan all Dx Assessment and Plan for all problems:: The neurovirus likely explain the etiology of his symptoms and he has got an ileus from this virus. Continue clear liquid diet, intravenous Reglan intravenous Protonix. Encourage the patient to ambulate. I will decrease his IV fluids
--- NOTE | 2018-04-29 06:53 | Progress Note ---
Subjective Patient reports: feels better (tolerating "some" clears), still having pain, pain is less Exam Vital signs and Labs for Last 24 Hours: Temp Pulse Resp BP Pulse Ox 98.7 F 65 18 132/84 95 04/29/18 04:00 04/29/18 04:00 04/29/18 04:00 04/29/18 04:00 04/29/18 04:00 I & O for Last 24 hours: Intake & Output 04/26/18 04/27/18 04/28/18 04/29/18 11:59 11:59 11:59 11:59 Intake Total 200 / 200 5208 / 5208 3969 / 3969 Output Total 600 / 600 Balance 200 / 200 4608 / 4608 3969 / 3969 Weight 205 lb 2 oz 205 lb 1.995 oz - Constitutional no acute distress - *Routine Respiratory Exam Absent: respiratory distress - *Routine Abdominal Exam Present: soft Progress Note: A&P (1) Infection due to Norovirus species Status: Acute Assessment and plan: slowly improving full liquids serial exams Current Visit: Yes (2) Ileus Status: Acute Current Visit: Yes (3) Cholelithiasis Status: Acute Current Visit: Yes (4) Elevated lipase Status: Acute Current Visit: Yes (5) Hypokalemia Status: Acute Current Visit: Yes
--- NOTE | 2018-04-29 07:05 | Progress Note ---
Internal Medicine - PN: Subj *Date: 04/29/18 *Time: 07:04 Interval history: Patient feels like he is improving. Heartburn and regurgitated symptoms have decreased. Bowel movements are starting to have a little more consistency. He is urinating well. He feels stronger. He has tolerated clear liquids. His abdominal pain has also improved Exam Vital signs and Labs for Last 24 Hours: Temp Pulse Resp BP Pulse Ox 98.7 F 65 18 132/84 95 04/29/18 04:00 04/29/18 04:00 04/29/18 04:00 04/29/18 04:00 04/29/18 04:00 I & O for Last 24 hours: Intake & Output 04/26/18 04/27/18 04/28/18 04/29/18 11:59 11:59 11:59 11:59 Intake Total 200 / 200 5208 / 5208 3969 / 3969 Output Total 600 / 600 Balance 200 / 200 4608 / 4608 3969 / 3969 Weight 205 lb 2 oz 205 lb 1.995 oz Narrative: He appears comfortable. Abdomen does remain mildly distended with good bowel sounds. Abdomen is nontender this morning. Assessment and Plan (1) Infection due to Norovirus species Current visit: Yes Status: Acute Category: Medical Code(s): A08.11 - Acute gastroenteropathy due to [place] agent (2) Ileus Current visit: Yes Status: Acute Category: Medical Code(s): K56.7 - Ileus , unspecified (3) Cholelithiasis Current visit: Yes Status: Acute Qualifiers: Cholelithiasis location: other site Biliary obstruction: without biliary obstruction Qualified Code(s): K80.80 - Other cholelithiasis without obstruction Category: Medical Code(s): K80.20 - Calculus of gallbladder without cholecystitis without obstruction (4) Elevated lipase Current visit: Yes Status: Acute Category: Medical Code(s): R74.8 - Abnormal levels of other serum enzymes (5) Hypokalemia Current visit: Yes Status: Acute Category: Medical Code(s): E87.6 - Hypokalemia - Assessment and plan all Dx Assessment and Plan for all problems:: Patient's ileus from viral infection finally seems to be headed in the right direction. Transition to oral medications (Protonix, Reglan) and advance diet at lunch.
--- NOTE | 2018-04-30 06:49 | Discharge Summary ---
General - General Admission date:: 04/26/18 Discharge date: 04/30/18 HPI HPI: 72-year-old male presented to the emergency department today with approximately 3 weeks of abdominal pain. While symptoms began 3 weeks ago they did not really intensify until April 18. Patient reports on that day, which was a Thursday , he experienced abdominal pain and a sensation as if food was coming up into his throat while he was at [employer]. He left an[employer]aptism to come home. From that point on he has had intermittent episodes of severe abdominal pain. 48 hours later on April 20 was the last time he attempted to eat. Whenever he would eat he would get crampy abdominal pain and occasionally been nauseated with emesis. He endorses subjective fevers and chills. He has been on a liquid diet for the last week. When this illness began 3 weeks ago he noticed black stools that have persisted. Patient does not take any medications. He notices recurrent abdominal distention anytime he tries to eat or drink. He reports a 16 pound weight loss. He is to the point where he is having 1-2 bowel movements per day that are described as "squirt" or a "spray". Workup in the emergency department revealed gaseous distention of the stomach along with cholelithiasis at the neck of the gallbladder, and findings suggestive of ileus. Patient has been admitted for gastrointestinal decompression, surgical consultation He describes the pain as generalized in the mid abdomen resembling a weight. He does describe distention. He has had regurgitation of liquid and has had black liquid bowel movements. He has never had any prior abdominal surgery. Denies any prior similar history. Hospital Course Hospital Course: Patient was admitted with initial diagnosis of ileus versus partial small bowel obstruction. Day after admission a repeat CT scan was performed with IV and oral contrast. That CT scan showed essentially the same findings as his noncontrasted CT. Both CTs also showed the presence of a gallstone. Right upper quadrant ultrasound was performed which also showed a gallstone. Patient remains symptomatic with bloating and passing small amounts of stools. Diarrhea panel was collected and patient tested positive for normal virus. It was felt that this was likely the cause of his gastrointestinal problems and he was diagnosed with a viral ileus. After 48 hours of fluids diet was advanced to clear liquids and patient was placed on intravenous Protonix for the heartburn that he was having an intravenous Reglan. After little over 24 hours of this regimen patient was transitioned to oral PPI and Reglan. He continued to tolerate a clear diet and was advanced to a full liquid diet. He tolerated full liquids without return of symptoms. Fluids were discontinued about 12 hours prior to discharge. Patient remained well. He was discharged home. He will follow-up on an as-needed basis. He will take a PPI for the next month and Reglan for the next week. He was counseled on his diet and how to slowly advance the diet. He is to continue to avoid carbonated beverages Objective Vital signs: Temp Pulse Resp BP Pulse Ox 98.5 F 73 18 116/76 94 L 04/30/18 04:00 04/30/18 04:00 04/30/18 04:00 04/30/18 04:00 04/30/18 04:00 DS: Diagnosis - Discharge Diagnosis (1) Infection due to Norovirus species Status: Acute (2) Ileus Status: Acute (3) Cholelithiasis Status: Acute (4) Elevated lipase Status: Acute (5) Hypokalemia Status: Acute Discharge Plan - Patient Discharge Instructions ACTIVITY: Continue current activity DIET: continue same diet - Follow up Plan Disposition: Home, Self-[facility] Medications: Home Medications Medication Instructions Recorded Confirmed Type No Known Home Medications 04/26/18 04/26/18 History Prescriptions/Medication Reconciliation: New Metoclopramide HCl [Metoclopramide 10mg Tablet] 10 mg PO ACHS #30 tab Omeprazole [Omeprazole 20mg Capsule] 20 mg PO BID #60 cap No Action No Known Home Medications
== END 2018-04-30 08:33 | disposition home or self-care (01) ==
LOC: 2ND 14:58 → ER 14:58 → 2ND 17:03
PROVIDERS: ADMIT Family Medicine; ATTEND Family Medicine
CPT/HCPCS: 36415; 74176; 74177; 76705; 80048; 80053; 80076; 82150; 82272; 83690; 85025; 87507; 96365; 96375; 96376; 99284; G0328; G0378; J2405; Q9967